=== PATIENT | female | born 1980 | race African-American/Black ===

== ENCOUNTER 2022-02-02 10:26 | Emergency (ER) | payer BC ==
[2022-02-02 10:44] VITALS: BP 150/83; PULSE 86; RESP 17; TEMP 98.1; BMI 30.1
[2022-02-02] MEDS ORDERED: RABIES IMMUNE GLOBULIN 300 UNITS/1 ML VIAL IM ONE (11:45)
[2022-02-02] MEDS ORDERED: RABIES VACCINE (PCEC)/PF 2.5 UNIT/VIAL IM ONE ×2 (11:45→11:49)
[2022-02-02] MEDS ORDERED: RABIES IMMUNE GLOBULIN 300 UNITS/1 ML VIAL ONE (11:48)
== END 2022-02-02 12:23 | disposition home or self-care (01) ==
LOC: JERFT 10:26
PROC: 3E023GC Introduction of Other Therapeutic Substance into Muscle, Percutaneous Approach (ICD-10-PCS; principal; 2022-02-02)
DX: S81.852A Open bite, left lower leg, initial encounter (principal); W55.01XA Bitten by cat, initial encounter
CPT/HCPCS: 90375; 90675; 99283-25

== ENCOUNTER 2022-02-05 09:45 | Emergency (ER) | payer BC ==
[2022-02-05 09:53] VITALS: BP 121/73; PULSE 92; RESP 18; TEMP 98.1; BMI 30.1
[2022-02-05] MEDS ORDERED: RABIES VACCINE (PCEC)/PF 2.5 UNIT/VIAL IM ONE ×2 (10:23→10:37)
== END 2022-02-05 11:32 | disposition home or self-care (01) ==
LOC: JERFT 09:45
PROC: 3E0234Z Introduction of Serum, Toxoid and Vaccine into Muscle, Percutaneous Approach (ICD-10-PCS; principal; 2022-02-05)
DX: Z20.3 Contact with and (suspected) exposure to rabies (principal)
CPT/HCPCS: 90675; 99283-25

== ENCOUNTER 2022-02-09 08:58 | Emergency (ER) | payer BC ==
[2022-02-09 09:06] VITALS: BP 118/61; PULSE 93; RESP 18; TEMP 97.7; BMI 30.1
[2022-02-09] MEDS ORDERED: RABIES VACCINE (PCEC)/PF 2.5 UNIT/VIAL IM ONE ×2 (10:17→10:30)
== END 2022-02-09 11:16 | disposition home or self-care (01) ==
LOC: JERFT 08:58 → JER 08:58 → JERFT 11:16
PROC: 3E0234Z Introduction of Serum, Toxoid and Vaccine into Muscle, Percutaneous Approach (ICD-10-PCS; principal; 2022-02-09)
DX: Z29.14 Encounter for prophylactic rabies immune globulin (principal)
CPT/HCPCS: 90675; 99284-25

== ENCOUNTER 2022-02-16 08:33 | Emergency (ER) | payer BC ==
[2022-02-16 08:41] VITALS: BP 129/87; PULSE 89; RESP 17; TEMP 97.6; BMI 29.2
[2022-02-16] MEDS ORDERED: RABIES VACCINE (PCEC)/PF 2.5 UNIT/VIAL IM ONE ×2 (09:19→09:22)
== END 2022-02-16 09:35 | disposition home or self-care (01) ==
LOC: JERFT 08:33 → JER 08:33 → JERFT 09:35
PROC: 3E0234Z Introduction of Serum, Toxoid and Vaccine into Muscle, Percutaneous Approach (ICD-10-PCS; principal; 2022-02-16)
DX: Z29.14 Encounter for prophylactic rabies immune globulin (principal)
CPT/HCPCS: 90675; 99284-25